=== PATIENT | female | born 1980 | race Caucasian/White ===

== ENCOUNTER 2024-06-22 23:39 | Emergency (ER) | payer BC, SELFPAY ==
[2024-06-22 23:42] VITALS: BP 165/78; PULSE 61; RESP 15; TEMP 36.5; O2SAT 100
[2024-06-23 00:10] LABS: Basophils Percent Auto 0.6 % (0.2-1.2); Eosinophils Absolute Auto 0.1 K/mm3 (0-0.3); Eosinophils Percent Auto 2.3 % (0-4.4); Hematocrit 38.8 % (37.0-47.0); Hemoglobin 13.1 g/dL (12.0-15.0); Immature Granulocyte Absolute 0.01 K/mm3 (0.00-0.031); Immature Granulocyte Percent A 0.2 % (0-0.5); Lymphocytes Absolute Auto 2.55 K/mm3 (0.9-3.2); Lymphocytes Percent Auto 41.3 % (18.3-44.2); Mean Corpuscular HGB Conc 33.8 g/dl (32-36); Mean Corpuscular Hemoglobin 31.2 pg (26-34); Mean Corpuscular Volume 92.4 fl (80-100); Mean Platelet Volume 12.1 fl (7.4-10.4); Monocytes Absolute Auto 0.4 K/mm3 (0.1-0.6); Neutrophils Percent Auto 48.6 % (45.5-73.1); Platelet Count Result 130 k/mm3 (150-375); White Blood Count 6.2 K/mm3 (4.5-10.0)
[2024-06-23 00:24] LABS: Alanine Aminotransferase 14 U/L (6-35); Albumin Level 4.6 g/dL (3.5-5.1); Alkaline Phosphatase 41 U/L (38-126); Anion Gap 10 mmol/L (4-12); Aspartate Amino Transferase 20 U/L (14-36); Bilirubin,Total 0.6 mg/dL (0.2-1.3); Blood Urea Nitrogen 16 mg/dL (7-17); Calcium 9.3 mg/dL (8.4-10.2); Carbon Dioxide 26 mmol/L (22-30); Chloride 105 mmol/L (98-107); Estimated CRCL calculation 85 ml/min; Estimated Glomerular Filt Rate > 60; Glucose 97 mg/dL (65-110); Lipase 99 U/L (23-300); Potassium 4.1 mmol/L (3.4-5.0); Sodium 141 mmol/L (137-145)
[2024-06-23 01:02] LABS: Add Urine Microscopic? YES; Appearance Urine Cloudy (Clear); Bacteria Urine None Seen /hpf; Bilirubin Urine Negative (Negative); Blood Urine Negative (Negative); Color Urine Yellow (Yellow); Glucose Urine UA Negative (Negative); Ketones Urine Negative (Negative); Leukocyte Esterase Ur Negative LEU/UL (Negative); Nitrate Urine Negative (Negative); Non Pathogenic Casts 0-2; Protein Urine Negative (Negative); RBC Urine 0-2 /hpf (0-2); Specific Grav Ur 1.021 (1.001-1.035); Squamous Epithelial Cell Urine Occasional /hpf (Few); WBC Urine 0-5 /hpf (0-3)
[2024-06-23 02:54] VITALS: BP 123/76; PULSE 50; RESP 17; O2SAT 100
--- NOTE | 2024-06-23 04:36 | ED.GENADULT ---
HPI - General Adult General Chief complaint: Abdominal Pain Stated complaint: abd pain Time Seen by Provider: 06/23/24 04:23 History of Present Illness HPI narrative: Patient is a 43-year-old female who presents emergency department with chief complaint of abdominal pain. Patient reports that around 8:00 p.m. started having intense pain throughout her abdomen the patient reports it was crampy and reports that she thought it was gas but it was very intense the patient reports she had nausea and had tenderness throughout her abdomen the patient reports that she went to the bathroom while she was in the emergency department and her symptoms resolved Related Data Allergies Allergy/AdvReac Type Severity Reaction Status Date / Time Sulfa (Sulfonamide AdvReac Hives Verified 06/22/24 23:40 Antibiotics) Review of Systems Review of Systems: A 10 system review of systems was completed on the patient and is negative except for what is stated in the HPI. Nursing and ancillary documentation was reviewed. Exam Narrative: GENERAL: Well-appearing, well-nourished, and in no acute distress. HEAD: Normocephalic, atraumatic. EYES: PERRLA and EOMI. ENT: Nares clear, no rhinorrhea or epistaxis. Mucous membranes moist. NECK: Supple. CHEST: Clear to auscultation. No respiratory distress. HEART: Regular rate and rhythm. No murmur heard. Normal peripheral pulses. ABDOMEN: Soft, nontender, nondistended, normal active bowel sounds. EXTREMITIES: Normal range of motion. No edema. SKIN: Warm, dry, no rash. NEURO: No focal deficits. Alert and oriented x3. PSYCH: Normal mood and affect. Course Vital Signs Vital signs: Vital Signs Temperature 36.5 C 06/22/24 23:42 Pulse Rate 61 06/22/24 23:42 Respiratory Rate 15 06/22/24 23:42 Blood Pressure 165/78 H 06/22/24 23:42 Pulse Oximetry 100 06/22/24 23:42 Oxygen Delivery Room Air 06/22/24 23:42 Temperature 36.5 C 06/22/24 23:42 Pulse Rate 50 L 06/23/24 02:54 Respiratory Rate 17 06/23/24 02:54 Blood Pressure 123/76 06/23/24 02:54 Pulse Oximetry 100 06/23/24 02:54 Oxygen Delivery Room Air 06/22/24 23:42 Medical Decision Making MDM Narrative Medical decision making narrative: Differential diagnosis includes intra-abdominal infection, appendicitis, diverticulitis, colitis, cholecystitis Patient's exam was nontender and not showing any signs of acute peritoneal irritation. Laboratory studies showed normal CBC patient does have thrombocytopenia and platelet count was 130 today this appears to be similar to her previous CBCs CMP was within normal limits lipase was normal liver enzymes are normal urinalysis showed no evidence UTI Given the patient is currently asymptomatic and exam is benign it was discussed with the patient whether to perform a CT scan or whether to conservatively manage the symptoms and return if symptoms worsen. The patient at this time opted to not have radiation exposure from a CT scan and opted to go home at this time. Vital Signs Vital Signs: Vital Signs Temperature 36.5 C 06/22/24 23:42 Pulse Rate 61 06/22/24 23:42 Respiratory Rate 15 06/22/24 23:42 Blood Pressure 165/78 H 06/22/24 23:42 Pulse Oximetry 100 06/22/24 23:42 Oxygen Delivery Room Air 06/22/24 23:42 Temperature 36.5 C 06/22/24 23:42 Pulse Rate 50 L 06/23/24 02:54 Respiratory Rate 17 06/23/24 02:54 Blood Pressure 123/76 06/23/24 02:54 Pulse Oximetry 100 06/23/24 02:54 Oxygen Delivery Room Air 06/22/24 23:42 Lab Data 06/22/24 23:50 06/22/24 23:50 Labs: Lab Results 06/22/24 06/23/24 Range/Units 23:50 00:47 WBC 6.2 (4.5-10.0) K/mm3 RBC 4.20 (4.2-5.4) M/mm3 Hgb 13.1 (12.0-15.0) g/dL Hct 38.8 (37.0-47.0) % MCV 92.4 (80-100) fl MCH 31.2 (26-34) pg MCHC 33.8 (32-36) g/dl RDW 13.0 (11.5-14.5) % Plt Count 130 L (150-375) k/mm3 MPV 12.1 H (7.4-10.4) fl Immature Gran % (Auto) 0.2 (0-0.5) % Neut % (Auto) 48.6 (45.5-73.1) % Lymph % (Auto) 41.3 (18.3-44.2) % [place] % (Auto) 7.0 (2.6-8.5) % Eos % (Auto) 2.3 (0-4.4) % Baso % (Auto) 0.6 (0.2-1.2) % Lymph # (Auto) 2.55 (0.9-3.2) K/mm3 Brooke # (Auto) 0.4 (0.1-0.6) K/mm3 Eos # (Auto) 0.1 (0-0.3) K/mm3 Baso # (Auto) 0.0 (0.0-0.1) K/mm3 Abs Immat Gran (auto) 0.01 (0.00-0.031) K/mm3 Absolute Neuts (auto) 3.0 (1.3-6.7) K/mm3 Absolute Nucleated RBC 0.000 (0.0-0.012) K/mm3 Nucleated RBC % 0.0 (0.0-0.2) % Sodium 141 (137-145) mmol/L Potassium 4.1 (3.4-5.0) mmol/L Chloride 105 (98-107) mmol/L Carbon Dioxide 26 (22-30) mmol/L Anion Gap 10 (4-12) mmol/L BUN 16 (7-17) mg/dL Creatinine 0.70 (0.7-1.0) mg/dL Estim Creat Clear Calc 85 ml/min Estimated GFR > 60 (59 - ) Glucose 97 (65-110) mg/dL Calcium 9.3 (8.4-10.2) mg/dL Total Bilirubin 0.6 (0.2-1.3) mg/dL AST 20 (14-36) U/L ALT 14 (6-35) U/L Alkaline Phosphatase 41 (38-126) U/L Total Protein 8.0 (6.3-8.2) g/dL Albumin 4.6 (3.5-5.1) g/dL Lipase 99 (23-300) U/L Urine Color Yellow (Yellow) Urine Appearance Cloudy H (Clear) Urine pH 7.0 (5.0-9.0) Ur Specific [place] 1.021 (1.001-1.035) Urine Protein Negative (Negative) mg/dL Urine Glucose (UA) Negative (Negative) mg/dL Urine Ketones Negative (Negative) mg/dL Ur Blood (Man) Negative (Negative) Urine Nitrate Negative (Negative) Urine Bilirubin Negative (Negative) Urine Urobilinogen 1.0 (<2.0) mg/dL Leukocyte Esterase Rfl Negative (Negative) CONY/UL Urine RBC 0-2 (0-2) /hpf Urine WBC 0-5 (0-3) /hpf Ur Squamous Epith Cells Occasional (Few) /hpf Urine Bacteria None seen /hpf Urine Casts 0-2 Discharge Plan Discharge Clinical Impression: Abdominal pain Patient Disposition: Home, Self-Care Condition: Stable Instructions: Antibiotic Form, Abdominal Pain (ED) Follow-up/Referrals: PHYSICIAN,PATIENT ACCOUNTS COORDINATOR [Primary Care Provider] - Time of Disposition: 04:39
[2024-06-23 04:55] VITALS: BP 134/76; PULSE 78; RESP 16; TEMP 36.6; O2SAT 100
== END 2024-06-23 04:59 | disposition home or self-care (01) ==
LOC: ANHED 06-23 04:44
PROVIDERS: Emergency Provider Emergency Medicine
DX: R10.9 Unspecified abdominal pain (principal)
CPT/HCPCS: 36415; 80053; 81001; 81025; 83690; 85025; 99283